=== PATIENT | male | born 1975 | race Caucasian/White ===

== ENCOUNTER 2018-01-08 15:01 | Emergency (ER) | payer OTHER ==
[~2018-01-08] VITALS: Ht 172.7 cm; Wt 73.0 kg
[2018-01-08 15:10] VITALS: BP 119/85
[2018-01-08 17:15] VITALS: BP 124/80
== END 2018-01-08 17:15 | disposition home or self-care (01) ==
LOC: MED 15:01
DX: K09.9 Cyst of oral region, unspecified (principal); F17.210 Nicotine dependence, cigarettes, uncomplicated
CPT/HCPCS: 99283

== ENCOUNTER 2021-02-25 16:35 | Emergency (ER) | payer OTHER ==
[~2021-02-25] VITALS: Ht 172.7 cm; Wt 72.6 kg
--- NOTE | 2021-02-25 16:36 | NUR ---
PT BROUGHT TO BED 8 VIA [facility] DELANEY
[2021-02-25 16:41] VITALS: BP 117/78
[2021-02-25] MEDS: IBUPROFEN 600 MG TAB PO ONE (17:21)
--- NOTE | 2021-02-25 17:27 | NUR ---
45/M biba with c/o mid chest pain since yesterday s/p fall. Patient states he tripped and fell yesterday, falling on his chest, denies head injury or LOC. Patient states pain worsens with movement or deep breathing. Denies fever, chills, sob, nausea, vomiting or diarrhea. Scrapes noted to bilateral knees but denies pain anywhere else.
[2021-02-25] MEDS: NACL 0.9% 1,000 ML IV ONE (17:56)
[2021-02-25 17:58] LABS: BASOPHILS % (AUTO) 0.3 % (0.0-2.0); EOSINOPHILS # (AUTO) 0.1 K/uL (0-0.4); EOSINOPHILS % (AUTO) 1.2 % (0.0-4.0); HEMATOCRIT 43.9 % (36-52); HEMOGLOBIN 14.7 g/dL (12.0-18.0); LYMPHOCYTES % (AUTO) 8.8 % (20.5-51.1); MEAN CORPUSCULAR HEMOGLOBIN 32 pg (27-31); MEAN CORPUSCULAR HGB CONC 33 g/dL (33-37); MONOCYTES # (AUTO) 0.8 K/uL (0.8-1.0); MONOCYTES % (AUTO) 6.8 % (1.7-9.3); NEUTROPHILS # (AUTO) 9.6 K/uL (1.8-7.7); NEUTROPHILS % (AUTO) 82.9 % (42.2-75.2); PLATELET COUNT (AUTO) 334 K/uL (140-450); RED BLOOD CELL COUNT(AUTO) 4.62 MIL/uL (4.20-6.10); WHITE BLOOD COUNT (AUTO) 11.5 K/uL (4.8-10.8)
[2021-02-25] MEDS ORDERED: IBUP-2213 PO (18:28)
[2021-02-25 18:55] VITALS: BP 117/78
--- NOTE | 2021-02-25 18:55 | NUR ---
Patient discharged with v/s stable. Written and verbal after care instructions given and explained. Patient alert, oriented and verbalized understanding of instructions. Ambulatory with steady gait. All questions addressed prior to discharge. ID band removed. Patient advised to follow up with PMD. Rx of Ibuprofen 600 mg given. Patient educated on indication of medication including possible reaction and side effects. Opportunity to ask questions provided and answered.
== END 2021-02-25 18:55 | disposition home or self-care (01) ==
LOC: MED 16:35
DX: S22.20XA Unspecified fracture of sternum, initial encounter for closed fracture (principal); W19.XXXA Unspecified fall, initial encounter; Y93.89 Activity, other specified; Y92.89 Other specified places as the place of occurrence of the external cause; Y99.8 Other external cause status
CPT/HCPCS: 36415; 71045; 71120; 84484; 85025; 93005; 96360; 99285; J7030